=== PATIENT | male | born 1975 | race Hispanic/Latino ===

== ENCOUNTER → 2023-10-30 | Day surgery (SDC) | payer OTHER ==
[~2023-10-30] MED LIST: DEXAMETHASONE SOD PHOS INJ 4 MG/ML SDV ONE; FENTANYL CITRATE/PF 100MCG/2 ML INJ ONE; FISH OIL 1,0001 EAC7; IOPAMIDOL 610MG/1ML 300 MG/ML VIAL IV ONE; LIDOCAINE HCL 2% LOCAL INJ 5 ML SDV VIAL INJ ONE; METOCLOPRAMIDE HCL 10 MG/2ML VIAL ONE; MULTI-VITAMIN1 EACH PO; ONDANSETRON HCL INJ 2MG/ML 2ML 2 MG/ML VIAL ONE; OVIDREL250 MCG/0. IM; PROMETHAZINE HCL (IM) 25 MG/ML VIAL IM ONE; PROPOFOL IV EMULSION 10 MG/ML 20 ML VIAL ONE; SEVOFLURANE INHAL SOLN 250 ML PEN BTL ONE
[2023-10-30 08:12] LABS: BASOPHILS # (AUTO) 0.1 (0.0-0.1); BASOPHILS % 0.8 % (0.0-1.0); EOSINOPHILS # (AUTO) 0.2 (0.0-0.4); EOSINOPHILS % 2.3 % (0.0-6.0); HEMATOCRIT 44.3 % (38.2-49.6); HEMOGLOBIN 15.4 g/dL (14.0-18.0); LYMPHOCYTES # (AUTO) 1.9 (1.0-3.2); MEAN CORPUSCULAR HEMOGLOBIN 31.4 pg (28-32); MEAN CORPUSCULAR HGB CONC 34.8 g/dL (31-35); MEAN CORPUSCULAR VOLUME 90.2 fL (81-99); MONOCYTES # (AUTO) 0.5 (0.2-0.8); MONOCYTES % 6.6 % (4.4-11.3); NEUTROPHILS # (AUTO) 5.3 (2.1-6.9); NEUTROPHILS % 65.7 % (38.7-80.0); PLATELET COUNT 202 x10e3/uL (140-360); RED BLOOD COUNT 4.91 x10e6/uL (4.3-5.7); RED CELL DISTRIBUTION WIDTH 12.3 % (11.7-14.4); WHITE BLOOD COUNT 7.99 x10e3/uL (4.8-10.8)
[2023-10-30 08:30] LABS: CALCIUM 9.5 mg/dL (8.4-10.2); CREATININE, SERUM 1.19 mg/dL (0.72-1.25)
[2023-10-30] MEDS: LACTATED RINGER'S 1,000 ML ONE (09:01)
[2023-10-30] MEDS: GENTAMICIN 80MG/NS 100 ML 200 ML IV ONE (09:02)
[2023-10-30] MEDS: ACETAMINOPHEN 1000 MG/100 ML 100 ML IV ONE (12:10)
[2023-10-30] MEDS: KETOROLAC TROMETHAMINE 30 MG/ML VIAL ONE (12:10)
[2023-10-30 13:00] VITALS: BP 137/84; PULSE 66; RESP 18; TEMP 98.7; O2SAT 98
== END | disposition home or self-care (01) ==
LOC: OR 07:33
PROVIDERS: ATTEND Urology
DX: N20.0 Calculus of kidney (principal); Z46.6 Encounter for fitting and adjustment of urinary device; N13.70 Vesicoureteral-reflux, unspecified; N13.30 Unspecified hydronephrosis; N40.0 Benign prostatic hyperplasia without lower urinary tract symptoms; N28.89 Other specified disorders of kidney and ureter; Z98.890 Other specified postprocedural states; Z88.1 Allergy status to other antibiotic agents
CPT/HCPCS: 36415; 52351; 74018; 74420; 80048; 84550; 85025; C1769; J0131; J1100; J1580; J1885; J2001; J2405; J2550; J2704; J2765; J3010; J7121; Q9967

== ENCOUNTER → 2024-02-18 | Outpatient (REF) | payer OTHER ==
[~2024-02-18] MED LIST changes: -DEXAMETHASONE SOD PHOS INJ 4 MG/ML SDV ONE; -FENTANYL CITRATE/PF 100MCG/2 ML INJ ONE; +FUROSEMIDE INJ 10 MG/ML 4 ML VIAL ONE; -IOPAMIDOL 610MG/1ML 300 MG/ML VIAL IV ONE; -LIDOCAINE HCL 2% LOCAL INJ 5 ML SDV VIAL INJ ONE; -METOCLOPRAMIDE HCL 10 MG/2ML VIAL ONE; -ONDANSETRON HCL INJ 2MG/ML 2ML 2 MG/ML VIAL ONE; -PROMETHAZINE HCL (IM) 25 MG/ML VIAL IM ONE; -PROPOFOL IV EMULSION 10 MG/ML 20 ML VIAL ONE; -SEVOFLURANE INHAL SOLN 250 ML PEN BTL ONE
== END ==
LOC: NM 07:43
PROVIDERS: ATTEND Urology
DX: N20.9 Urinary calculus, unspecified (principal); N13.30 Unspecified hydronephrosis
CPT/HCPCS: 78708; A9562; J1940